=== PATIENT | female | born 1960 | race Caucasian/White ===

== ENCOUNTER 2017-07-06 08:34 | Emergency (ER) | payer OTHER ==
[~2017-07-06] VITALS: Ht 165.1 cm; Wt 78.8 kg
[~2017-07-06 08:34] MED LIST: MAXZIDE 75/501 EACH PO
[2017-07-06 11:03] VITALS: BP 151/87
[2017-07-06] MEDS ORDERED: PERCOCET 5/31 TABLET PO (13:46)
== END 2017-07-06 14:28 | disposition home or self-care (01) ==
LOC: EME 08:34
DX: M50.222 Other cervical disc displacement at C5-C6 level (principal); M50.221 Other cervical disc displacement at C4-C5 level; Z87.891 Personal history of nicotine dependence
CPT/HCPCS: 72141; 99281; 99284; J1885